=== PATIENT | female | born 1965 | race Caucasian/White ===

== ENCOUNTER 2024-01-24 19:03 | Inpatient (IN) | payer OTHER ==
[2024-01-24] MEDS ORDERED: FAMOTIDINE 20 MG/50 ML IVPB 20 MG/50 ML MG IVPB ONE (21:56)
[2024-01-24] MEDS ORDERED: LIDOCAINE VISCOUS 2% ORAL/TOP 15 ML UNIT-DOSE CUP ONE (21:56)
[2024-01-24] MEDS ORDERED: ACETAMINOPHEN INJECTION 100 ML IVPB ONE (22:21)
[2024-01-24 22:25] LABS: HEMOGLOBIN 13.7 GM/dL (10.7-15.3); MCH 27.5 pg (25.7-33.7); MCHC 32.5 g/dl (32.0-36.0); MEAN CELL VOLUME 84.6 fl (80-96); MEAN PLT VOLUME 7.7 fl (7.5-11.1); PLATELET COUNT 373 10^3/uL (134-434); RBC 4.96 M/mm3 (3.60-5.2); RDW 14.4 % (11.6-15.6); WHITE BLOOD COUNT 26.2 K/mm3 (4.0-10.0)
[2024-01-24 22:27] LABS: INR 0.98 (0.83-1.09); PROTHROMBIN TIME (PATIENT) 11.3 SEC (9.7-13.0)
[2024-01-24 22:30] LABS: ACTIVATED PTT 28.4 SECONDS (25.2-36.5)
[2024-01-24 22:37] LABS: POTASSIUM 3.1 mmol/L (3.5-5.1)
[2024-01-24 22:39] LABS: ALBUMIN 3.9 g/dl (3.4-5.0); BLOOD UREA NITROGEN 20.6 mg/dL (7-18); CALCIUM 9.7 mg/dL (8.5-10.1)
[2024-01-24] MEDS ORDERED: MAG HYDROX/AL HYDROX/SIMETH 30 ML UNIT-DOSE CUP ONE (22:42)
[2024-01-24 22:43] LABS: CREATININE 0.9 mg/dL (0.55-1.3)
[2024-01-24 22:44] LABS: BILIRUBIN,TOTAL 1.1 mg/dL (0.2-1); TOT PROT 7.4 g/dl (6.4-8.2)
[2024-01-24] MEDS: LIDOCAINE VISCOUS 2% ORAL/TOP 15 ML UNIT-DOSE CUP MM ONE (22:46)
[2024-01-24] MEDS: SODIUM CHLORIDE 0.9% 500 ML INFUS.BAG IV ONE (22:46)
[2024-01-24] MEDS: ACETAMINOPHEN 1000 MG/100 ML BAG IVPB ONE (22:46)
[2024-01-24] MEDS: MAG HYDROX/AL HYDROX/SIMETH 30 ML UNIT-DOSE CUP PO ONE (22:46)
[2024-01-24] MEDS: FAMOTIDINE 20 MG/50 ML IVPB 20 MG/50 ML MG IVPB ONE (22:46)
[2024-01-24] MEDS ORDERED: MAGNESIUM SULFATE IN WATER 2 GM/50 ML IVPB IVPB ONE (23:04)
[2024-01-24] MEDS: MAGNESIUM SULFATE IN WATER 2 GM/50 ML IVPB IVPB ONE (23:10)
[2024-01-24 23:32] LABS: MAGNESIUM 2.1 mg/dL (1.8-2.4)
[2024-01-24 23:40] LABS: ANISOCYTOSIS 1+; MACROCYTOSIS 0; PLATELET ESTIMATE NORMAL
[2024-01-25] MEDS ORDERED: POTASSIUM CHLORIDE TABS 20 MEQ TABLET.ER (FP) PO ONE (01:00)
[2024-01-25] MEDS ORDERED: PIPERACILLIN/TAZOB 3.375 GM 3.375 GM/50 ML BAG IVPB ONE (01:00)
[2024-01-25] MEDS: PIPERACILLIN/TAZOB 3.375 GM 3.375 GM in DEXTROSE 5%-WATER - 50 ML IVPB ONE (01:09)
[2024-01-25] MEDS: POTASSIUM CHLORIDE TABS 20 MEQ TABLET.ER (FP) PO ONE (01:09)
[2024-01-25] MEDS: LACTATED RINGERS SOLUTION 1,000 ML/1,000 ML INFUS.BAG IV SCH (01:09)
[2024-01-25 05:02] VITALS: BMI 31.7
[2024-01-25] MEDS: PIPERACILLIN/TAZOB 3.375 GM 3.375 GM in DEXTROSE 5%-WATER - 50 ML IVPB SCH ×3 (05:33→17:27)
[2024-01-25] MEDS: KETOROLAC TROMETHAMINE 15 MG/ML VIAL IVPUSH PRN ×2 (07:54→22:26)
[2024-01-25] MEDS ORDERED: HYDROmorphone HCl 2 MG/ML VIAL IVPB PRN (08:35)
[2024-01-25] MEDS: predniSONE 5 MG TABLET (UD) PO SCH (09:40)
[2024-01-25] MEDS: azaTHIOprine 50 MG TABLET PO SCH (09:40)
[2024-01-25 09:41] LABS: BASO % 0.2 % (0-2.0); EOS % 0.3 % (0-4.5); HEMOGLOBIN 12.7 GM/dL (10.7-15.3); LYMPH % 4.8 % (8-40); MCH 27.9 pg (25.7-33.7); MCHC 33.5 g/dl (32.0-36.0); MEAN CELL VOLUME 83.3 fl (80-96); MEAN PLT VOLUME 7.8 fl (7.5-11.1); MONO % 5.2 % (3.8-10.2); NEUT % 89.5 % (42.8-82.8); PLATELET COUNT 331 10^3/uL (134-434); RBC 4.57 M/mm3 (3.60-5.2); RDW 14.4 % (11.6-15.6); WHITE BLOOD COUNT 17.4 K/mm3 (4.0-10.0)
[2024-01-25 09:58] LABS: POTASSIUM 3.9 mmol/L (3.5-5.1)
[2024-01-25 10:10] LABS: ALBUMIN 3.3 g/dl (3.4-5.0); BLOOD UREA NITROGEN 12.9 mg/dL (7-18); CALCIUM 9.1 mg/dL (8.5-10.1); MAGNESIUM 2.5 mg/dL (1.8-2.4)
[2024-01-25 10:13] LABS: BILIRUBIN,TOTAL 1.8 mg/dL (0.2-1); CREATININE 0.6 mg/dL (0.55-1.3); PHOSPHOROUS 3.3 mg/dL (2.5-4.9); TOT PROT 6.3 g/dl (6.4-8.2)
[2024-01-25] MEDS: ACETAMINOPHEN 325 MG TABLET (FP) PO SCH (12:15)
[2024-01-25 12:58] LABS: EPI CELLS 20 /uL (0-25.1); HYALINE CASTS 1 /uL (0-3.1); URINE APPEARANCE CLEAR; URINE BACTERIA 9 /uL (0-1359); URINE BILIRUBIN NEGATIVE (NEGATIVE); URINE COLOR YELLOW; URINE GLUCOSE (UA) NEGATIVE (NEGATIVE); URINE KETONE NEGATIVE (NEGATIVE); URINE LEUK ESTERASE TRACE (NEGATIVE); URINE NITRITE NEGATIVE (NEGATIVE); URINE PROTEIN 1+ (NEGATIVE); URINE RBC 140 /uL (0-23.9); URINE WBC 53 /uL (0-25.8)
[2024-01-26 07:59] LABS: BASO % 0.4 % (0-2.0); EOS % 1.1 % (0-4.5); HEMATOCRIT 36.2 % (32.4-45.2); LYMPH % 7.1 % (8-40); MCH 28.1 pg (25.7-33.7); MCHC 33.2 g/dl (32.0-36.0); MEAN CELL VOLUME 84.6 fl (80-96); MEAN PLT VOLUME 7.8 fl (7.5-11.1); MONO % 5.7 % (3.8-10.2); NEUT % 85.7 % (42.8-82.8); PLATELET COUNT 304 10^3/uL (134-434); RBC 4.27 M/mm3 (3.60-5.2); RDW 14.5 % (11.6-15.6); WHITE BLOOD COUNT 15.4 K/mm3 (4.0-10.0)
[2024-01-26 08:21] LABS: ALBUMIN 3.1 g/dl (3.4-5.0)
[2024-01-26 08:24] LABS: BILIRUBIN,DIRECT 0.3 mg/dL (0.0-0.2)
[2024-01-26 08:26] LABS: BILIRUBIN,TOTAL 1.2 mg/dL (0.2-1)
[2024-01-26 08:27] LABS: TOT PROT 6.3 g/dl (6.4-8.2)
[2024-01-26] MEDS: oxyCODONE HCL 5 MG TABLET PO PRN (10:12)
[2024-01-26] MEDS ORDERED: BUPIVACAINE HCL/PF 0.25% (2.5MG/ML) 10 ML VIAL ONE (13:06)
[2024-01-26] MEDS ORDERED: PROPOFOL 80 ML ONE (13:13)
[2024-01-26] MEDS ORDERED: DEXAMETHASONE SOD PHOSPHATE 4 MG/1 ML VIAL ONE ×2 (13:13→14:00)
[2024-01-26] MEDS ORDERED: LIDOCAINE HCL/PF 2% SDV 5ML VIAL ONE (13:13)
[2024-01-26] MEDS ORDERED: ONDANSETRON 4 MG/2 ML VIAL ONE (13:13)
[2024-01-26] MEDS ORDERED: MIDAZOLAM HCL 2 MG/2 ML SINGLE DOSE VIAL ONE (13:14)
[2024-01-26] MEDS ORDERED: ROCURONIUM BROMIDE 50 MG/5 ML SYRINGE ONE (13:21)
[2024-01-26] MEDS ORDERED: SUCCINYLCHOLINE CHLORIDE 200 MG/10 ML SYRINGE ONE (13:21)
[2024-01-26] MEDS ORDERED: IPRATROPIUM BR 0.02% 0.5 MG/2.5 ML VIAL.NEB. NEB ONE (14:33)
[2024-01-26] MEDS ORDERED: ALBUTEROL SO4 0.083% IH SOL 2.5 MG/3 ML VIAL.NEB. NEB ONE (14:34)
[2024-01-26] MEDS: ALBUTEROL SO4 2.5/IPRATROPIUM 0.5 INH SOL 3 ML VIAL.NEB. NEB ONE (14:35)
[2024-01-26] MEDS ORDERED: LACTATED RINGERS SOLUTION 1,000 ML IV SCH (15:15)
[2024-01-26] MEDS ORDERED: KETOROLAC TROMETHAMINE 15 MG/ML VIAL IVPUSH PRN (16:28)
[2024-01-26] MEDS ORDERED: HYDROmorphone HCl 2 MG/ML VIAL IVPB PRN (16:28)
[2024-01-26] MEDS: LACTATED RINGERS SOLUTION 1,000 ML/1,000 ML INFUS.BAG IV SCH (16:34)
[2024-01-26] MEDS: PIPERACILLIN/TAZOB 3.375 GM 3.375 GM in DEXTROSE 5%-WATER - 50 ML IVPB SCH (18:22)
[2024-01-26] MEDS: amLODIPine BESYLATE 5 MG TABLET (FP) PO SCH (18:22)
[2024-01-26] MEDS: ACETAMINOPHEN 325 MG TABLET (FP) PO SCH (18:22)
[2024-01-26] MEDS: LACTATED RINGERS SOLUTION 1,000 ML IV SCH (18:27)
[2024-01-26] MEDS ORDERED: HYDROmorphone HCL CARPU-JECT 2 MG/1 ML DISP.SYRIN IVPB PRN (23:49)
[2024-01-27 00:07] LABS: CYCLIC CITRULLINE PEPTIDE AB 3 units (0-19)
[2024-01-27 06:34] VITALS: RESP 18
[2024-01-27 07:56] LABS: HEMATOCRIT 34.3 % (32.4-45.2); HEMOGLOBIN 11.3 GM/dL (10.7-15.3); MCH 27.8 pg (25.7-33.7); MCHC 32.9 g/dl (32.0-36.0); MEAN CELL VOLUME 84.7 fl (80-96); MEAN PLT VOLUME 7.9 fl (7.5-11.1); PLATELET COUNT 304 10^3/uL (134-434); RBC 4.05 M/mm3 (3.60-5.2); RDW 13.8 % (11.6-15.6); WHITE BLOOD COUNT 15.7 K/mm3 (4.0-10.0)
[2024-01-27 08:14] LABS: POTASSIUM 4.2 mmol/L (3.5-5.1)
[2024-01-27 08:16] LABS: ALBUMIN 2.9 g/dl (3.4-5.0); BLOOD UREA NITROGEN 10.6 mg/dL (7-18); CALCIUM 9.2 mg/dL (8.5-10.1)
[2024-01-27 08:18] LABS: CREATININE 0.6 mg/dL (0.55-1.3)
[2024-01-27 08:21] LABS: BILIRUBIN,TOTAL 0.7 mg/dL (0.2-1); TOT PROT 6.2 g/dl (6.4-8.2)
[2024-01-27 09:52] LABS: ANISOCYTOSIS 0; MACROCYTOSIS 0
[2024-01-27] MEDS: predniSONE 5 MG TABLET (UD) PO SCH (10:24)
[2024-01-27] MEDS: azaTHIOprine 50 MG TABLET PO SCH (10:25)
[2024-01-27 23:57] VITALS: PULSE 72
[2024-01-28 05:31] VITALS: BP 164/81; TEMP 98.2
[2024-01-28] MEDS: oxyCODONE HCL 5 MG TABLET PO PRN (07:21)
[2024-01-28 08:34] LABS: BASO % 0.1 % (0-2.0); EOS % 0.2 % (0-4.5); HEMATOCRIT 34.4 % (32.4-45.2); HEMOGLOBIN 11.4 GM/dL (10.7-15.3); LYMPH % 11.6 % (8-40); MCH 27.6 pg (25.7-33.7); MCHC 33.1 g/dl (32.0-36.0); MEAN CELL VOLUME 83.4 fl (80-96); MEAN PLT VOLUME 7.8 fl (7.5-11.1); MONO % 5.6 % (3.8-10.2); NEUT % 82.5 % (42.8-82.8); PLATELET COUNT 371 10^3/uL (134-434); RBC 4.13 M/mm3 (3.60-5.2); RDW 13.9 % (11.6-15.6); WHITE BLOOD COUNT 15.2 K/mm3 (4.0-10.0)
[2024-01-30 22:07] LABS: C-ANCA <1:20 titer (Neg:<1:20)
== END 2024-01-28 12:28 | disposition home or self-care (01) | DRG 282 ==
LOC: JER 19:03 → JERBED 23:53 → J8W 01-25 03:37
PROVIDERS: ADMIT Internal Medicine; ATTEND Nurse Practitioner Family
DX: K85.10 Biliary acute pancreatitis without necrosis or infection (principal); R13.10 Dysphagia, unspecified; J38.6 Stenosis of larynx; I10 Essential (primary) hypertension; D72.829 Elevated white blood cell count, unspecified; K21.9 Gastro-esophageal reflux disease without esophagitis; K44.9 Diaphragmatic hernia without obstruction or gangrene; I77.6 Arteritis, unspecified; K76.0 Fatty (change of) liver, not elsewhere classified
CPT/HCPCS: 0241U-QW; 36415; 71046-TC-FY; 74177-TC; 74181-TC; 76705-TC; 80053; 80076; 81003; 83520; 83605; 83690; 83735; 84100; 84484; 85025; 85379; 85610; 85730; 86038; 86200; 86256; 86431; 93005; 93010; 94640; 94760; 99285-25; J0131